=== PATIENT | female | born 1995 | race Two or more races ===

== ENCOUNTER 2024-07-09 08:42 | Emergency (ER) | payer MEDICAID, SELFPAY ==
[2024-07-09 08:54] VITALS: BP 119/86; PULSE 87; RESP 16; TEMP 37.1; O2SAT 97
--- NOTE | 2024-07-09 09:17 | EDNOTE_ITS ---
ED Skin Abcess FB-RME/HPI General Chief complaint: Skin/Abscess/Foreign Body Stated complaint: RASH ON BUE/BLE THIS AM; LAC L) PALM FROM YESTERDA Time Seen by Provider: 07/09/24 08:53 Source: patient Arrival date/time: 07/09/24 08:42 29-year-old female with no known medical history presents to the emergency room with a chief complaint of a generalized rash to her abdomen bilateral arms and lower extremities that began this morning. Patient also has a laceration to her left palm that occurred yesterday afternoon while opening up a can. Mode of arrival: ambulatory Limitations: no limitations Related Data Home Medications ?Medication ?Instructions ?Recorded ?Confirmed prenat.vits,aruna,[id number] 1 tab PO QDAY 08/24/20 08/24/20 Previous Rx's ?Medication ?Instructions ?Recorded docusate sodium 100 mg capsule 100 mg PO BID postpartu m 30 days 08/29/20 (Colace) #60 caps ibuprofen 600 mg tablet 600 mg PO QID fever or pain 30 08/29/20 days #60 tabs albuterol sulfate 90 mcg/actuation 1 inh inhalation QI D #6.7 grams 12/31/21 aerosol inhaler Allergies Allergy/AdvReac Type Severity Reaction Status Date / Time NKA* Allergy Uncoded 07/09/24 08:46 Review of Systems Review of Systems Systems Reviewed: All systems reviewed, normal except as documented Constitutional Constitutional: Reports system reviewed and no additional complaints, except as documented, Denies fatigue, Denies fever(s), Denies headache(s) and Denies weakness Eyes Eyes: Reports system reviewed and no additional complaints, except as documented, Denies blurry vision, Denies change in vision and Denies itchy eyes ENT Ears, Nose, Mouth, and Throat: Reports system reviewed and no additional complaints, except as documented, Denies otalgia, Denies headache(s), Denies lip swelling, Denies nasal congestion, Denies throat swelling, Denies tongue swelling and Denies vertigo Cardiovascular Cardiovascular: Reports system reviewed and no additional complaints, except as documented, Denies chest pain, Denies dyspnea and Denies dyspnea on exertion Respiratory Respiratory: Reports system reviewed and no additional complaints, except as documented, Denies chest congestion, Denies cough, Denies dyspnea, Denies dyspnea on exertion and Denies wheezing Gastrointestinal Gastrointestinal: Reports system reviewed and no additional complaints, except as documented, Denies abdominal pain, Denies cramping, Denies nausea and Denies vomiting Genitourinary Genitourinary: Reports system reviewed and no additional complaints, except as documented Musculoskeletal Musculoskeletal: Reports system reviewed and no additional complaints, except as documented and Denies back pain Integumentary/Breasts Skin/Breast: Reports system reviewed and no additional complaints, except as documented and Reports wounds Neurologic Neurologic: Reports system reviewed and no additional complaints, except as documented, Denies confusion, Denies headache(s), Denies lack of coordination, Denies vertigo and Denies weakness Psychiatric Psychiatric: Reports system reviewed and no additional complaints, except as documented, Denies anxiety, Denies confusion, Denies depression, Denies paranoia, Denies suicidal ideation and Denies tactile hallucinations Endocrine Endocrine: Reports system reviewed and no additional complaints, except as documented and Denies fatigue Hematologic/Lymphatic Hematologic/Lymphatic: Reports system reviewed and no additional complaints, except as documented and Denies lymphadenopathy Allergic/Immunologic Allergic/Immunologic: Reports system reviewed and no additional complaints, except as documented, Denies as per HPI, Denies GI upset with certain foods, Denies itchy eyes, Denies lip swelling, Denies seasonal rhinorrhea, Denies throat swelling, Denies tongue swelling, Reports urticaria and Denies wheezing Past Medical History Past Medical History NEUROLOGIC: Negative Neurological Disorders or Seizures CARDIAC: Negative Cardiac Disorders or Congestive Heart Failure RESPIRATORY: Positive Asthma; Negative Chronic Obstructive Pulmonary Disease (COPD) GASTROINTESTINAL: Negative Gastrointestinal Disorders or Colorectal Cancer GENITOURINARY: Negative Genitourinary Disorders, Renal Disease or Prostate Cancer REPRODUCTIVE: Negative Breast Cancer, Endometriosis, Pelvic Inflammatory Disease, Previous Pregnancies, Testicular Cancer or Uterine Prolapse MUSCULOSKELETAL: Negative Musculoskeletal Disorders, Bone Cancer or Carpal Tunnel Syndrome ENDOCRINE: Negative Endocrine Disorders, Diabetes Mellitus Type 1 or Diabetes Mellitus Type 2 HEMATOLOGIC: Negative Blood Disorders PSYCHO/SOCIAL: Negative Depression or Anxiety OTHER HISTORY: Positive Blood Transfusions (2012); Negative Autoimmune Disease, Blood Transfusion Reaction, Anesthesia Reactions, MRSA, VRSA, Vancomycin-Resistant Enterococci, Clostridium Difficile, Cancer, Breast Cancer, Cervical Cancer, Colorectal Cancer, Lung Cancer, Ovarian Cancer, Prostate Cancer or Testicular Cancer Family History FAMILY HISTORY: Negative Family Psychiatric Problems, Family Respiratory Disorders, Family Cardiac Disorders, Family Gastrointestinal Problems, Family Cancer, Family Surgery or Family Anesthesia Reaction Surgical History SURGICAL: Positive Oral Surgery; Negative Abdominal Surgery, Nephrectomy, Transurethral Resection, Joint Replacement, Amputation, Open Reduction Internal Fixation, Arthroscopy, Neurologic Surgery or Brain Shunt Social History SMOKING STATUS: Never smoker ED Exam General Limitations: Present no limitations General appearance: Present alert and in no apparent distress Head Head exam: Present atraumatic Eye Eye exam: Present normal appearance, PERRL and EOMI ENT ENT exam: Present normal exam, normal oropharynx and mucous membranes moist Neck Neck exam: Present normal inspection, full ROM and trachea midline Chest Chest inspection: Present normal inspection and symmetric chest wall rise Respiratory Respiratory exam: Present normal lung sounds bilaterally Cardiovascular Cardiovascular exam: Present regular rate, normal rhythm and normal heart sounds Abdominal Exam Abdominal exam: Present soft and normal bowel sounds Extremities Exam Extremities exam: Present normal inspection and full ROM Expanded Upper Extremity Exam Shoulder exam: Present normal inspection Arm exam: Present normal inspection Elbow exam: Present normal inspection Forearm/Wrist exam: Present normal inspection Hand exam: Present normal inspection Hand L/R front image: 2 1. laceration (2 cm laceration. It is superficial and occurred yesterday afternoon.) Vascular exam: Normal capillary refill Back Exam Back exam: Present normal inspection and full ROM Neurological Exam Neurological exam: Present alert, oriented X3 and CN II-XII intact Psychiatric Psychiatric exam: Present normal affect and normal mood Skin Skin exam: Present warm, dry, intact, normal color and rash Expanded Skin Exam Type of lesion: Present rash Distribution: Present generalized, abdomen, LUE, LLE, RUE and RLE Description: Present erythematous and other (Hives); Absent tenderness or swelling Course Quality Measures none Orders Category Date Time Status Dermabond Set Up NOW Care 07/09/24 09:13 Active Wound Care [Wound Care] X1 Care 07/09/24 09:13 Active Dexamethasone Inj [Decadron Inj] Med 07/09/24 09:13 Discontinued 10 mg PO X1 ONE DiphenhydrAMINE [Benadryl] Med 07/09/24 09:13 Discontinued 25 mg PO X1 ONE Famotidine [Pepcid] Med 07/09/24 09:13 Discontinued 20 mg PO X1 ONE TET,DIP/PERT AC (Adult)-Tdap [Boostrix Adult (Tdap) Med 07/09/24 09:57 Discontinued Vacc] 0.5 ml IMI .ONCE ONE Vital Signs Vital signs: Vital Signs Temperature 98.8 F 07/09/24 08:54 Pulse Rate 87 07/09/24 08:54 Respiratory Rate 16 07/09/24 08:54 Blood Pressure 119/86 H 07/09/24 08:54 Pulse Oximetry (%) 97 07/09/24 08:54 Oxygen Delivery Method Room Air 07/09/24 08:54 Skin / Abscess / Foreign Body MDM Narrative MDM Narrative:: 29-year-old female with no known medical history presents to the emergency room with a chief complaint of a generalized rash to her abdomen bilateral arms and lower extremities that began this morning. Patient also has a laceration to her left palm that occurred yesterday afternoon while opening up a can. Patient is hemodynamically stable and in no apparent distress. Physical examination shows a generalized rash of hives and erythema to the bilateral upper arms abdomen and groin area. Patient states his rash began this morning. Patient denies any shortness of breath any respiratory distress. Lung sounds are clear bilaterally there is no wheezing there is no lip swelling tongue swelling or any difficulty swallowing. Patient also has a 2 cm laceration to the palm of her left hand. Patient states she was opening up a can yesterday and cut herself. The laceration is very superficial and occurred yesterday afternoon. The laceration was closed and approximated with Steri- Strips and Dermabond. Area was cleaned and irrigated and soaked in normal saline and Betadine. A dressing was placed. During reevaluation after antihistamines patient's allergic reaction symptoms have significantly improved. Patient was discharged and educated to follow-up with primary care provider in the next 24 to 48 hours and return to the emergency room for any evidence of worsening signs or symptoms Patient data External records reviewed:: [facility] previous records Clinical information provided by:: patient Social determinants that could affect healthcare access:: none Patient has the following chronic illnesses:: No chronic illness How is presenting disease/condition affected by chronic disease/condition?: no chronic disease Evaluation data The following diagnostics were reviewed and interpreted by me:: lab results and radiology exam(s) Lab and/or radiology exams considered but not ordered:: Labs and radiology exams considered and ordered Interpretation Summary: N/A Medications / Prescriptions Medications or Prescriptions considered but not ordered:: Medication given Medication administrations:: Medication Administration History Discontinued Medications Dexamethasone Sodium Phosphate (Dexamethasone Sod Phos Inj 10 Mg/Ml Vial) 10 mg PO X1 ONE Stop: 07/09/24 09:14 Last Admin: 07/09/24 09:44 Dose: 10 mg Documented By: ELY Diphenhydramine HCl (Diphenhydramine Elix 25 Mg/10 Ml Udc) 25 mg PO X1 ONE Stop: 07/09/24 09:14 Last Admin: 07/09/24 09:44 Dose: 25 mg Documented By: ELY Diphtheria/Tetanus/Acell Pertussis (Diphth,Pertuss(Acell),Tet Vac 0.5 Ml Syr- Adult) 0.5 ml IMi .ONCE ONE Stop: 07/09/24 09:58 Last Admin: 07/09/24 10:04 Dose: 0.5 ml Documented By: ELY Famotidine (Famotidine 20 Mg Tablet) 20 mg PO X1 ONE Stop: 07/09/24 09:14 Last Admin: 07/09/24 09:44 Dose: 20 mg Documented By: ELY Medication given Consultations Consultation(s) initiated? (list below): No Diagnosis Skin/Abscess Differential Diagnosis: abscess of skin or subcutaneous tissue, allergic reaction to drug, cellulitis, contact dermatitis and other (Allergic reaction) Most likely diagnosis given after review of the tests above:: Contact dermatitis Admission Indicated Admission indicated?: not indicated Admission Request Was there a request for admission?: No Disposition Plan Disposition Plan: Discharge Discharge Attestation Discharge Attestation: The patient and all family members were given an opportunity to ask questions and understood the discharge instructions. Discharge instructions specifically effects, indications for sooner follow up or return to the emergency department, and the expected course of current diagnosis. Patient condition: Stable Discharge Plan Plan Patient Disposition: HOME (Self Care) Discharge Disposition comment: Stable Prescriptions/Referrals Prescriptions/Med Rec: No Action prenat.vits,aruna,[id number] Tablet 1 tab PO QDAY ibuprofen 600 mg tablet 600 mg PO QID MDD 4 30 Days Qty: 60 1RF docusate sodium [Colace] 100 mg capsule 100 mg PO BID MDD 2 30 Days Qty: 60 1RF albuterol sulfate 90 mcg/actuation HFA aerosol inhaler 1 inh inhalation QID Qty: 6.7 0RF Referrals: Darinel Chua MD [Primary Care Provider] - In 1 week Problem List Clinical Impression: Contact dermatitis, Laceration Patient/Caregiver Discharge Instructions Education Materials: Understanding Contact Dermatitis, ED Contact Dermatitis Additional Instructions: Please follow-up with your primary care provider in the next 24 to 48 hours. For any evidence of worsening signs or symptoms return to the emergency room immediately Print Language: Chinese Stand Alone Forms: [employer] Award Info., Work/School Release, Patient Portal Info Letter PA/THERAPY ADMINISTRATIVE ASSISTANT Supervising Physician PA/THERAPY ADMINISTRATIVE ASSISTANT Supervising Physician: Dr. Johansen
[2024-07-09] MEDS: DEXAMETHASONE SOD PHOS INJ 10 MG/ML VIAL PO (09:44)
[2024-07-09] MEDS: DiphenhydrAMINE ELIX 25 MG/10 ML UDC PO (09:44)
[2024-07-09] MEDS: FAMOTIDINE 20 MG TABLET PO (09:44)
[2024-07-09] MEDS: DIPHTH,PERTUSS(ACELL),TET VAC 0.5 ML SYR- ADULT IMi (10:04)
[2024-07-09 11:04] VITALS: BP 120/78; PULSE 87; RESP 16; TEMP 37.1; O2SAT 98
== END 2024-07-09 11:05 | disposition home or self-care (01) ==
PROVIDERS: Emergency Provider Family Medicine; PCP Family Medicine
DX: L25.9 Unspecified contact dermatitis, unspecified cause (principal); S61.412A Laceration without foreign body of left hand, initial encounter; W45.8XXA Other foreign body or object entering through skin, initial encounter
CPT/HCPCS: 12001; 90471; 90715; 99283; J1100; A9270

== ENCOUNTER 2024-10-30 01:54 | Emergency (ER) | payer MEDICAID, SELFPAY ==
[2024-10-30 01:54] VITALS: BMI 35.6
[2024-10-30 02:02] VITALS: BP 145/98; PULSE 83; RESP 18; TEMP 36.7; O2SAT 96
--- NOTE | 2024-10-30 02:56 | XR_ITS ---
Examination: CT brain head without contrast. 2-D sagittal coronal reconstructions Date and time of exam:October 30, 2024, 0316 hrs. Indications: Onset headaches today CTDI: vol (mGy):48.5 DLP: (mGycm):893 Technique: Multiple CT axial sections of the brain have been obtained, 5 mm slice thickness. Contrast has not been administered. 2-D sagittal, coronal reconstructions have been obtained Low dose protocols were performed. One or more of the following dose reduction techniques were used; automated exposure control, adjustment of the mA and/or KV according to patient size, use of iterative reconstruction technique. Findings: No significant ventricular enlargement. Intra-axial or extra-axial hemorrhage density is not seen. No mass effect or midline shift Basal cisterns are not remarkable. Fourth ventricle is midline. Cranial vault intact. Impression: Negative for acute hemorrhage, mass effect or midline shift
--- NOTE | 2024-10-30 03:23 | PD.EDRME ---
Rapid Medical Screening Exam RME Arrival date/time: 10/30/24 01:54 This is a case of 29-year-old female who came into the emergency room due to headache for 1 day no other symptoms noted no dizziness no nausea no vomiting persistence of the symptoms this patient decided to start consult here in the emergency room Chief Complaint: Headache Vital signs: Vital Signs Temperature 98.1 F 10/30/24 02:02 Pulse Rate 83 10/30/24 02:02 Respiratory Rate 18 10/30/24 02:02 Blood Pressure 145/98 H 10/30/24 02:02 Pulse Oximetry (%) 96 10/30/24 02:02 Oxygen Delivery Method Room Air 10/30/24 02:02
--- NOTE | 2024-10-30 03:33 | EDNOTE_ITS ---
ED Headache RME/HPI General Chief Complaint: Headache Stated Complaint: HEADACHE Arrival date/time: 10/30/24 01:54 RME / HPI RME / HPI Narrative: 10/30/24 01:54 This is a case of 29-year-old female who came into the emergency room due to headache for 1 day no other symptoms noted no dizziness no nausea no vomiting persistence of the symptoms this patient decided to start consult here in the emergency room DR. SALAS MAIN ED EVALUATION: 29 y/o female presents to ED c/o headache x 1 day. Admits to recent sress. Denies history of frequent hedaches. No other concerns or complaints expressed at this time. Related Data Home Medications ?Medication ?Instructions ?Recorded ?Confirmed prenat.vits,aruna,[id number] 1 tab PO QDAY 08/24/20 08/24/20 Previous Rx's ?Medication ?Instructions ?Recorded docusate sodium 100 mg capsule 100 mg PO BID postpartu m 30 days 08/29/20 (Colace) #60 caps ibuprofen 600 mg tablet 600 mg PO QID fever or pain 30 08/29/20 days #60 tabs albuterol sulfate 90 mcg/actuation 1 inh inhalation QI D #6.7 grams 12/31/21 aerosol inhaler Allergies Allergy/AdvReac Type Severity Reaction Status Date / Time NKA* Allergy Uncoded 07/09/24 08:46 Review of Systems Review of Systems Systems Reviewed: All systems reviewed, normal except as documented Past Medical History Past Medical History RESPIRATORY: Positive Asthma OTHER HISTORY: Positive Blood Transfusions (2012) Surgical History SURGICAL: Positive Oral Surgery ED Exam Narrative Physical exam: Generally patient is alert no obvious distress, eyes pupils equal round reactive to light, neck shows no bruits no nuchal rigidity, heart regular rate and rhythm, lungs clear to auscultation equal bilateral, abdomen soft bowel sounds present nondistended nontender, skin is warm pale and dry, neurologic exam no focal motor or sensory deficits and no ataxia. Course Quality Measures none Orders Category Date Time Status CT head/brain wo con Stat Exams 10/30/24 02:56 Taken HCG Qualitative,Urine Stat Lab 10/30/24 03:00 Completed Vital Signs Vital signs: Vital Signs Temperature 98.1 F 10/30/24 02:02 Pulse Rate 83 10/30/24 02:02 Respiratory Rate 18 10/30/24 02:02 Blood Pressure 145/98 H 10/30/24 02:02 Pulse Oximetry (%) 96 10/30/24 02:02 Oxygen Delivery Method Room Air 10/30/24 02:02 Headache MDM Narrative MDM Narrative:: Scribe Attestation: I, Ruthie Costa, am scribing for and in the presence of Dr. Salas. Provider Notation: Although this document has been carefully reviewed, there may still be some phonetic and other typographical errors. These errors are purely grammatical due to imperfections in the software program and should not be construed in any way to compromise the substance of the patient's medical care during this visit. Patient is without headache at the time of my evaluation. CAT scan of the brain was already protocoled prior to me seeing the patient. That was normal. Patient does not want pain medication here in the emergency room. She did take Tylenol and ibuprofen earlier today which may have helped with her pain currently. She is to continue Tylenol and ibuprofen as needed for pain at home. Follow-up with her doctor. Return to ER as needed or if condition worsens. Differential diagnosis: Primary cephalgia, secondary cephalgia Patient data External records reviewed:: [facility] previous records (Reviewed prior ED records from 07/09/24. Patient was seen for Contact dermatitis.) Clinical information provided by:: patient Social determinants that could affect healthcare access:: none Patient has the following chronic illnesses:: Asthma How is presenting disease/condition affected by chronic disease/condition?: uneffected by Evaluation data The following diagnostics were reviewed and interpreted by me:: lab results and radiology exam(s) Lab and/or radiology exams considered but not ordered:: None Interpretation Summary: RADIOLOGY Head/Brain CT: Findings: There is no intracranial hemorrhage, extra-axial collection, mass, mass-effect or midline shift. There is good garza-white differentiation. There is no CT evidence of acute large vascular territorial infarct. Ventricles are not enlarged or effaced. Visualized paranasal sinuses and tympanomastoid cavities are clear. The bony calvarium is intact. Impression: No intracranial hemorrhage, mass-effect or midline shift. No CT evidence of acute large vascular territorial infarct. Medications / Prescriptions Medications or Prescriptions considered but not ordered:: None Medication administrations:: See above if any. Consultations Consultation(s) initiated? (list below): No Diagnosis Differential diagnosis headache: migraine, tension headache, headache and sinusitis Most likely diagnosis given after review of the tests above:: None Admission Indicated Admission indicated?: not indicated Explain why admission is indicated or not indicated:: Patient does not meet admission criteria. Admission Request Was there a request for admission?: No Disposition Plan Disposition Plan: Discharge Discharge Attestation Discharge Attestation: The patient and all family members were given an opportunity to ask questions and understood the discharge instructions. Discharge instructions specifically effects, indications for sooner follow up or return to the emergency department, and the expected course of current diagnosis. Patient condition: Stable Discharge Plan Plan Patient Disposition: HOME (Self Care) Prescriptions/Referrals Prescriptions/Med Rec: No Action prenat.vits,aruna,[id number] Tablet 1 tab PO QDAY ibuprofen 600 mg tablet 600 mg PO QID MDD 4 30 Days Qty: 60 1RF docusate sodium [Colace] 100 mg capsule 100 mg PO BID MDD 2 30 Days Qty: 60 1RF albuterol sulfate 90 mcg/actuation HFA aerosol inhaler 1 inh inhalation QID Qty: 6.7 0RF Referrals: Darinel Chua MD [Primary Care Provider] - In 1 week Problem List Clinical Impression: Headache Patient/Caregiver Discharge Instructions Education Materials: Self-Care for Headaches Additional Instructions: You may take Tylenol and/or ibuprofen as needed for pain. Follow-up with your doctor as needed. Print Language: Irish Stand Alone Forms: [employer] Award Info., Patient Portal Info Letter
--- NOTE | 2024-10-30 03:34 | PRELIM_ITS ---
CT scan of the head without intravenous contrast (axial sections with sagittal and coronal reformats). October 30, 2024 0316 hours Clinical History: headache Comparison: None Findings: There is no intracranial hemorrhage, extra-axial collection, mass, mass-effect or midline shift. There is good garza-white differentiation. There is no CT evidence of acute large vascular territorial infarct. Ventricles are not enlarged or effaced. Visualized paranasal sinuses and tympanomastoid cavities are clear. The bony calvarium is intact. Impression: No intracranial hemorrhage, mass-effect or midline shift. No CT evidence of acute large vascular territorial infarct. Report Electronically Signed By: Josh Kennedy 10/30/2024 3:33:25 AM [EST]
[2024-10-30 03:35] LABS: HCG Qualitative,Urine Negative
[2024-10-30 03:47] VITALS: BP 130/93; PULSE 86; RESP 19; O2SAT 98
== END 2024-10-30 04:00 | disposition home or self-care (01) ==
PROVIDERS: Nurse Practitioner Family; Emergency Provider Emergency Medicine; PCP Family Medicine
DX: R51.9 Headache, unspecified (principal)
CPT/HCPCS: 70450; 81025; 99283

== ENCOUNTER 2024-11-18 05:54 | Emergency (ER) | payer MEDICAID, SELFPAY ==
[2024-11-18 05:56] VITALS: BP 129/85; PULSE 95; RESP 18; TEMP 36.8; O2SAT 96; BMI 35.4
--- NOTE | 2024-11-18 06:35 | EDNOTE_ITS ---
ED Dental RME/HPI General Chief complaint: Dental/Oral/Throat Stated complaint: SORE THROAT Time Seen by Provider: 11/18/24 06:16 Arrival date/time: 11/18/24 05:54 29-year-old female presents to the emergency department for complaints of sore throat patient reports symptoms onset 2 days ago reports nothing symptoms better or worse quality throbbing in nature no radiation of symptoms severity moderate with no treatment prior to arrival Limitations: no limitations Related Data Home Medications ?Medication ?Instructions ?Recorded ?Confirmed prenat.vits,aruna,[id number] 1 tab PO QDAY 08/24/20 08/24/20 Previous Rx's ?Medication ?Instructions ?Recorded docusate sodium 100 mg capsule 100 mg PO BID postpartu m 30 days 08/29/20 (Colace) #60 caps ibuprofen 600 mg tablet 600 mg PO QID fever or pain 30 08/29/20 days #60 tabs albuterol sulfate 90 mcg/actuation 1 inh inhalation QI D #6.7 grams 12/31/21 aerosol inhaler amoxicillin 875 mg-potassium 1 tab PO BID 7 days #14 t abs 11/18/24 clavulanate 125 mg tablet prednisone 10 mg tablet 30 mg (3 x 10 mg) PO BID 3 d ays 11/18/24 #18 tabs Allergies Allergy/AdvReac Type Severity Reaction Status Date / Time No Known Allergies Allergy Verified 11/18/24 05:59 Review of Systems Review of Systems Systems Reviewed: All systems reviewed, normal except as documented Constitutional Constitutional: Reports system reviewed and no additional complaints, except as documented, Denies fever(s) and Denies headache(s) Eyes Eyes: Reports system reviewed and no additional complaints, except as documented and Denies blurry vision ENT Ears, Nose, Mouth, and Throat: Reports system reviewed and no additional complaints, except as documented, Denies headache(s), Denies nasal congestion, Denies nasal discharge and Reports sore throat Cardiovascular Cardiovascular: Reports system reviewed and no additional complaints, except as documented, Denies chest pain and Denies dyspnea Respiratory Respiratory: Reports system reviewed and no additional complaints, except as documented, Denies chest congestion, Denies cough and Denies dyspnea Gastrointestinal Gastrointestinal: Reports system reviewed and no additional complaints, except as documented and Denies abdominal pain Integumentary/Breasts Skin/Breast: Reports system reviewed and no additional complaints, except as documented and Denies rash Neurologic Neurologic: Reports system reviewed and no additional complaints, except as documented, Reports as per HPI and Denies headache(s) Past Medical History Past Medical History NEUROLOGIC: Negative Neurological Disorders or Seizures CARDIAC: Negative Cardiac Disorders or Congestive Heart Failure RESPIRATORY: Positive Asthma; Negative Chronic Obstructive Pulmonary Disease (COPD) GASTROINTESTINAL: Negative Gastrointestinal Disorders or Colorectal Cancer GENITOURINARY: Negative Genitourinary Disorders, Renal Disease or Prostate Cancer REPRODUCTIVE: Negative Breast Cancer, Endometriosis, Pelvic Inflammatory Disease, Previous Pregnancies, Testicular Cancer or Uterine Prolapse MUSCULOSKELETAL: Negative Musculoskeletal Disorders, Bone Cancer or Carpal Tunnel Syndrome ENDOCRINE: Negative Endocrine Disorders, Diabetes Mellitus Type 1 or Diabetes Mellitus Type 2 HEMATOLOGIC: Negative Blood Disorders PSYCHO/SOCIAL: Negative Depression or Anxiety OTHER HISTORY: Positive Blood Transfusions (2012); Negative Autoimmune Disease, Blood Transfusion Reaction, Anesthesia Reactions, MRSA, VRSA, Vancomycin-Resistant Enterococci, Clostridium Difficile, Cancer, Breast Cancer, Cervical Cancer, Colorectal Cancer, Lung Cancer, Ovarian Cancer, Prostate Cancer or Testicular Cancer Family History FAMILY HISTORY: Negative Family Psychiatric Problems, Family Respiratory Disorders, Family Cardiac Disorders, Family Gastrointestinal Problems, Family Cancer, Family Surgery or Family Anesthesia Reaction Surgical History SURGICAL: Positive Oral Surgery; Negative Abdominal Surgery, Nephrectomy, Transurethral Resection, Joint Replacement, Amputation, Open Reduction Internal Fixation, Arthroscopy, Neurologic Surgery or Brain Shunt Social History SMOKING STATUS: Never smoker ED Exam General Limitations: Present no limitations General appearance: Present alert and in no apparent distress Head Head exam: Present atraumatic, normocephalic and normal inspection Eye Eye exam: Present normal appearance, PERRL and EOMI; Absent conjunctival injection ENT ENT exam: Present mucous membranes moist Expanded ENT Exam Throat exam: Present tonsillar erythema and tonsillomegaly Neck Neck exam: Present normal inspection, full ROM and trachea midline Chest Chest inspection: Present normal inspection and symmetric chest wall rise Respiratory Respiratory exam: Present normal lung sounds bilaterally; Absent respiratory distress Cardiovascular Cardiovascular exam: Present regular rate, normal rhythm and normal heart sounds Abdominal Exam Abdominal exam: Present soft and normal bowel sounds Extremities Exam Extremities exam: Present normal inspection and full ROM Back Exam Back exam: Present normal inspection and full ROM Neurological Exam Neurological exam: Present alert, oriented X3, CN II-XII intact, normal gait and reflexes normal; Absent motor sensory deficit Psychiatric Psychiatric exam: Present normal affect and normal mood Skin Skin exam: Present warm, dry, intact and normal color Course Quality Measures none Vital Signs Vital signs: Vital Signs Temperature 98.2 F 11/18/24 05:56 Pulse Rate 95 11/18/24 05:56 Respiratory Rate 18 11/18/24 05:56 Blood Pressure 129/85 H 11/18/24 05:56 Pulse Oximetry (%) 96 11/18/24 05:56 Oxygen Delivery Method Room Air 11/18/24 05:56 O2 saturation 96% on room air within normal limits Dental / Oral MDM Narrative MDM Narrative:: 29-year-old female presents to the emergency department for complaints of sore throat patient reports symptoms onset 2 days ago reports nothing symptoms better or worse quality throbbing in nature no radiation of symptoms severity moderate with no treatment prior to arrival Patient reports no chance of On exam patient well-appearing patient is not acutely toxic no acute distress patient no trismus hoarseness of voice Exam patient does have tonsillar erythema and tonsillar swelling Patient was treated symptomatically suspect patient most likely has streptococcal pharyngitis Patient treated with Augmentin and prednisone Patient discharged home in no distress to follow-up with primary care doctor in the next 24 to 48 hours and for any worsening symptoms to return to the ER immediately Patient data External records reviewed:: [facility] previous records Clinical information provided by:: patient Social determinants that could affect healthcare access:: none Patient has the following chronic illnesses:: None How is presenting disease/condition affected by chronic disease/condition?: no chronic disease Evaluation data The following diagnostics were reviewed and interpreted by me:: other (specify) Lab and/or radiology exams considered but not ordered:: Considered not ordered Interpretation Summary: N/A Medications / Prescriptions Medications or Prescriptions considered but not ordered:: Given Medication administrations:: Given Consultations Consultation(s) initiated? (list below): No Diagnosis Dental Differential Diagnosis: gingival abscess, dental caries, toothache, dental abscess and fracture of tooth Most likely diagnosis given after review of the tests above:: Pharyngitis Admission Indicated Admission indicated?: not indicated Admission Request Was there a request for admission?: No Disposition Plan Disposition Plan: Discharge Discharge Attestation Discharge Attestation: The patient and all family members were given an opportunity to ask questions and understood the discharge instructions. Discharge instructions specifically effects, indications for sooner follow up or return to the emergency department, and the expected course of current diagnosis. Patient condition: Stable Discharge Plan Plan Patient Disposition: HOME (Self Care) Discharge Disposition comment: Stable Prescriptions/Referrals Prescriptions/Med Rec: New prednisone 10 mg tablet 30 mg PO BID 3 Days Qty: 18 0RF amoxicillin-pot clavulanate 875-125 mg tablet 1 tab PO BID 7 Days Qty: 14 0RF No Action prenat.vits,aruna,[id number]-rela-[id number] Tablet 1 tab PO QDAY ibuprofen 600 mg tablet 600 mg PO QID MDD 4 30 Days Qty: 60 1RF docusate sodium [Colace] 100 mg capsule 100 mg PO BID MDD 2 30 Days Qty: 60 1RF albuterol sulfate 90 mcg/actuation HFA aerosol inhaler 1 inh inhalation QID Qty: 6.7 0RF Problem List Clinical Impression: Pharyngitis Patient/Caregiver Discharge Instructions Education Materials: Self-Care for Sore Throats Additional Instructions: Please follow up with your primary care doctor in the next 24-48hrs for any worsening symptoms return here immediately Print Language: Martiniquais Stand Alone Forms: [employer] Award Info., Patient Portal Info Letter PA/FIBERGLASS LUGGAGE MOLDER Supervising Physician PA/FIBERGLASS LUGGAGE MOLDER Supervising Physician: Dr. ayala
[2024-11-18 06:37] VITALS: RESP 12
== END 2024-11-18 06:40 | disposition home or self-care (01) ==
PROVIDERS: Emergency Provider Family Medicine; PCP Family Medicine
DX: J02.9 Acute pharyngitis, unspecified (principal)
CPT/HCPCS: 99281

== ENCOUNTER 2024-12-19 18:01 | Emergency (ER) | payer MEDICAID, SELFPAY ==
[2024-12-19 18:02] VITALS: BMI 34.9
[2024-12-19 18:34] VITALS: BP 111/68; PULSE 110; RESP 18; TEMP 38.1; O2SAT 98
--- NOTE | 2024-12-19 18:43 | XR_ITS ---
Examination: Abdomen sonogram, Limited Date and time of exam: December 19, 2024, 1940 hours INDICATIONS: Abdominal pain and fever epigastric pain today, early by history Technique: Real-time garza scale transabdominal sonographic images of the upper abdomen obtained. Findings: Normal gallbladder Normal common bile duct 0.3 cm Pancreatic head 3.6 cm Liver 15.9 cm fatty infiltration no focal liver lesions Normal hepatopetal portal venous flow Patent IVC IMPRESSION: Normal gallbladder Normal common bile duct
--- NOTE | 2024-12-19 18:43 | XR_ITS ---
Examination: OB Transvaginal ultrasound of the pelvis, complete Technique: Transvaginal sonographic images pelvis performed using garza scale imaging Exam date and time: December 19, 2024, 1949 hours INDICATIONS: Pelvic pain and fever beginning 6 days ago FINDINGS: Uterus 9.8 cm pole 0.7 cm corresponds to 6 weeks 3 days gestational age Cardiac motion 140 bpm Subchorionic hemorrhage 30 x 28 mm Right ovary 2.9 cm arterial flow Small follicles Left ovary 5.0 cm arterial flow multiple cysts, the largest 29 x 30 mm IMPRESSION: Viable intrauterine gestation 6 weeks 3 days, recommend short-term follow-up pelvic sonography given the subchorionic hemorrhage
--- NOTE | 2024-12-19 18:45 | EDRME_ITS ---
Rapid Medical Screening Exam [facility] Arrival date/time: 12/19/24 18:01 29F with history of DM presents to ED with 2 days of N/V, ab pain/cramping, and some non-bloody diarrhea. Patient denies URI symptoms, dysuria, and vaginal bleeding. Patient is about 6 weeks (). Chief Complaint: Abdominal Pain Vital signs: Vital Signs Temperature 100.5 F H 12/19/24 18:34 Pulse Rate 110 H 12/19/24 18:34 Respiratory Rate 18 12/19/24 18:34 Blood Pressure 111/68 12/19/24 18:34 Pulse Oximetry (%) 98 12/19/24 18:34 Oxygen Delivery Method Room Air 12/19/24 18:34
[2024-12-19 19:15] VITALS: TEMP 38.1
[2024-12-19] MEDS: ACETAMINOPHEN 500 MG TABLET 1000 MG PO (19:15)
[2024-12-19 19:27] LABS: Collection Type, Urine Clean Catch
[2024-12-19 19:28] LABS: Lactate (Lactic Acid) 1.2 mMol/L (0.4-2.0)
[2024-12-19 19:29] LABS: Influenza A Ag Negative; Influenza B Ag Negative
[2024-12-19 19:42] LABS: Amphetamine/Methamp Scrn,U Negative (Negative); Barbiturate Screen,Urine Negative (Negative); Benzodiazepines Screen,Urine Negative (Negative); Benzoylecgonine Screen, Ur Negative (Negative); Fentanyl Screen,Urine Negative (Negative); Opiate Screen,Urine Negative (Negative); THC Screen,Urine Negative (Negative)
[2024-12-19 19:44] LABS: Basophils # (Auto) 0.0 Thou/mm3 (0.0-0.2); Basophils % (Auto) 0 % (0-2.5); Eosinophils # (Auto) 0.3 Thou/mm3 (0.0-0.5); Eosinophils % (Auto) 2 % (0-10); Hematocrit 40.5 % (36.0-46.0); Hemoglobin 13.8 g/dL (12.0-16.0); Immature Granulocytes Auto 0.07 Thou/mm3 (0.00-0.00); Lymphocytes # (Auto) 1.8 Thou/mm3 (1.0-4.8); Lymphocytes % (Auto) 15 % (10-50); Mean Corpuscular HGB Conc 34.1 g/dl (31.0-37.0); Mean Corpuscular Hemoglobin 28.3 pg (25.0-35.0); Mean Corpuscular Volume 83 fL (80-100); Monocytes # (Auto) 0.6 Thou/mm3 (0.0-0.8); Monocytes % (Auto) 5 % (0-12); Neutrophils # (Auto) 9.2 Thou/mm3 (1.8-7.7); Neutrophils % (Auto) 77 % (37-80); Nucleated Red Blood Cell # 0.00 Thou/mm3 (0.00-0.00); Nucleated Red Blood Cell % 0 /100 WBC (0); Platelet Count 305 Thou/mm3 (140-440); RDW Standard Deviation 40.7 fL (36.4-46.3); Red Blood Count 4.88 Miln/mm3 (4.00-5.20); White Blood Count 11.9 Thou/mm3 (3.6-11.0)
[2024-12-19 19:57] LABS: Amorphous Crystals,Urine Present (Absent); Bacteria,Urine Rare; Bilirubin,Urine Negative (Negative); Blood,Urine Negative (Negative); Clarity,Urine Turbid (Clear/Hazy); Color,Urine Yellow (Lt Yel-Yel); Culture Indicated,Urine Not Indicated; Glucose, Urine Negative (Negative); Ketones,Urine Negative (Negative); Leukocyte Esterase,Urine Negative (Negative); Nitrite,Urine Negative (Negative); PH,Urine 6.0 (5.0-7.0); Protein,Urine Trace (Neg - Trace); RBC,Urine 6 /hpf (0-3); Specific Gravity,Urine 1.036 (1.001-1.035); Squamous Epithelial Cell,Urine 18 /hpf (0-5); Urobilinogen,Urine 3.0 mg/dL (0.0-1.0); WBC,Urine 2 /hpf (0-5)
[2024-12-19 19:59] LABS: Alanine Aminotransferase 102 U/L (10-49); Albumin, Serum 5.0 gm/dL (3.5-5.0); Albumin/Globulin Ratio 2.1 (1.2-2.2); Alkaline Phosphatase 78 U/L (46-116); Anion Gap 12 (7-16); Aspartate Amino Transferase 81 U/L (0-34); BUN/Creatinine Ratio 15 Ratio (12-20); Bilirubin,Total 0.6 mg/dL (0.3-1.2); Blood Urea Nitrogen 9 mg/dL (9-23); Calcium 9.3 mg/dL (8.3-10.6); Calcium (Corrected) 9.3 mg/dL (8.5-10.1); Carbon Dioxide 21.0 mMol/L (20.0-31.0); Chloride 104 mMol/L (98-107); Creatinine (Component) 0.6 mg/dL (0.6-1.3); Estimated Creatinine Clearance 156.5 mL/min (>60); Globulin 2.4 gm/dL (2.3-3.5); Glucose 122 mg/dL (74-106); Lipase 26 U/L (12-53); Osmolality,Calculated 273 (275-295); Potassium 3.8 mMol/L (3.4-5.1); Procalcitonin 0.12 ng/ml (0.0-0.49); Sodium 137 mMol/L (136-145); Total Protein 7.4 gm/dL (5.7-8.2); eGFR > 60 See Note
--- NOTE | 2024-12-19 20:14 | PD.EDABDPN ---
ED Abdominal Pain RME/HPI General Chief Complaint: Abdominal Pain Stated complaint: ABD PAIN, CHILLS, AND BODYACHES Time seen by provider: 12/19/24 20:14 Arrival date/time: 12/19/24 18:01 Source: patient Limitations: no limitations RME / HPI RME / HPI narrative: 12/19/24 18:01 29F with history of DM presents to ED with 2 days of N/V, ab pain/cramping, and some non-bloody diarrhea. Patient denies URI symptoms, dysuria, and vaginal bleeding. Patient is about [address] Morrissey evaluation Patient is a 29-year-old female with medical history notable for diabetes, recent emergency department times for nausea and vomiting abdominal pain cramping and diarrhea. Denies any vaginal bleeding. Patient is G5, P3 at approximately 6 weeks gestation. Related Data Home Medications ?Medication ?Instructions ?Recorded ?Confirmed prenat.vits,aruna,[id number] 1 tab PO QDAY 08/24/20 08/24/20 Previous Rx's ?Medication ?Instructions ?Recorded docusate sodium 100 mg capsule 100 mg PO BID 30 days 08/29/20 (Colace) #60 caps ibuprofen 600 mg tablet 600 mg PO QID fever or pain 30 08/29/20 days #60 tabs albuterol sulfate 90 mcg/actuation 1 inh inhalation QID #6.7 grams 12/31/21 aerosol inhaler Allergies Allergy/AdvReac Type Severity Reaction Status Date / Time No Known Allergies Allergy Verified 12/19/24 18:04 ED Exam General Limitations: Present no limitations Head Head exam: Present atraumatic Eye Eye exam: Present normal appearance and PERRL ENT ENT exam: Present normal exam Neck Neck exam: Present normal inspection Chest Chest inspection: Present normal inspection and symmetric chest wall rise Respiratory Respiratory exam: Absent respiratory distress Cardiovascular Cardiovascular exam: Present tachycardia Abdominal Exam Abdominal exam: Present soft; Absent distention, tenderness, guarding or rebound Neurological Exam Neurological exam: Present alert and other Psychiatric Psychiatric exam: Present normal affect Skin Skin exam: Present warm, dry, intact and normal color Course Orders Category Date Time Status Bedside COVID-19 Antigen Test NOW Care 12/19/24 18:43 Active Insert IV NOW Care 12/19/24 18:43 Active US OB transvaginal Stat Exams 12/19/24 18:43 Completed US gall bladder Stat Exams 12/19/24 18:43 Completed Beta HCG,Quantitative Stat Lab 12/19/24 19:20 Completed Blood Culture (Lab) Stat Lab 12/19/24 19:20 Received CBC Stat Lab 12/19/24 19:20 Completed CMP [Comprehensive Metabolic Panel] Stat Lab 12/19/24 19:20 Completed Drug Screen,Urine Stat Lab 12/19/24 19:17 Completed Influenza A & B Rapid Panel Stat Lab 12/19/24 18:50 Completed Lactate (Lactic Acid) Stat Lab 12/19/24 19:20 Completed Lipase Stat Lab 12/19/24 19:20 Completed Procalcitonin Stat Lab 12/19/24 19:20 Completed Urinalysis, C/S if Indicated Stat Lab 12/19/24 19:17 Completed Acetaminophen Tab [Tylenol ES Tab] Med 12/19/24 18:43 Discontinued 1,000 mg PO X1 ONE cefTRIAXone/D5w 1gm IV premix [Rocephin/D5w 1gm IV Med 12/19/24 18:44 Discontinued premix] 1 gm in 50 ml IV X1 Vital Signs Vital signs: Vital Signs Temperature 100.5 F H 12/19/24 18:34 Pulse Rate 110 H 12/19/24 18:34 Respiratory Rate 18 12/19/24 18:34 Blood Pressure 111/68 12/19/24 18:34 Pulse Oximetry (%) 98 12/19/24 18:34 Oxygen Delivery Method Room Air 12/19/24 18:34 Abdominal Pain [facility] Patient data External records reviewed:: [facility] previous records Clinical information provided by:: patient Patient has the following chronic illnesses:: See MDM How is presenting disease/condition affected by chronic disease/condition?: exacerbated by Evaluation data The following diagnostics were reviewed and interpreted by me:: lab results and radiology exam(s) Lab and/or radiology exams considered but not ordered:: None Interpretation Summary: See [facility] Medications / Prescriptions Medications or Prescriptions considered but not ordered:: None Medication administrations:: Medication Administration History Discontinued Medications Acetaminophen (Acetaminophen 500 Mg Tablet) 1,000 mg PO X1 ONE Stop: 12/19/24 18:44 Last Admin: 12/19/24 19:15 Dose: 1,000 mg Documented By: OA Ceftriaxone Sodium/Dextrose (Rocephin/D5w 1gm Iv Premix) 1 gm in 50 mls @ 100 mls/hr IV X1 ONE Stop: 12/19/24 19:13 Last Infusion: 12/19/24 21:19 Dose: Infused Documented By: Admin: 12/19/24 20:49 Dose: 100 mls/hr Documented By: FILI See above Discharge Plan Prescriptions/Referrals Prescriptions/Med Rec: No Action prenat.vits,aruna,[id number]-axcu-dtron Tablet 1 tab PO QDAY ibuprofen 600 mg tablet 600 mg PO QID MDD 4 30 Days Qty: 60 1RF docusate sodium [Colace] 100 mg capsule 100 mg PO BID MDD 2 30 Days Qty: 60 1RF albuterol sulfate 90 mcg/actuation HFA aerosol inhaler 1 inh inhalation QID Qty: 6.7 0RF Referrals: Darinel Chua MD [Primary Care Provider, Family Practice] - In 1 week Patient/Caregiver Discharge Instructions Print Language: Maltese
[2024-12-19 20:17] LABS: Beta HCG,Quantitative 7559 mIU/mL (<5.0)
[2024-12-19] MEDS: cefTRIAXone/D5w 1gm IV premix 1 GM/50 ML BAG IV (20:49)
[2024-12-19 20:50] VITALS: TEMP 37.4
[2024-12-19 23:13] VITALS: BP 133/80; PULSE 90; RESP 22; TEMP 37.1; O2SAT 96
--- NOTE | 2024-12-19 23:21 | PD.EDABDPN ---
ED Abdominal Pain RME/HPI General Chief Complaint: Abdominal Pain Stated complaint: ABD PAIN, CHILLS, AND BODYACHES Time seen by provider: 12/19/24 20:14 Arrival date/time: 12/19/24 18:01 RME / HPI RME / HPI narrative: 12/19/24 18:01 29F with history of DM presents to ED with 2 days of N/V, ab pain/cramping, and some non-bloody diarrhea. Patient denies URI symptoms, dysuria, and vaginal bleeding. Patient is about [address] Arndt?s Main ED Evaluation: 29yo female who is ~6 weeks gestation presents to the ED for a chief complaint of epigastric pain x today. No radiation or migration. Patient denies any nausea, vomiting, fever, chills, vaginal bleeding, or any other associated symptoms. NKA. Related Data Home Medications ?Medication ?Instructions ?Recorded ?Confirmed prenat.vits,aruna,[id number] 1 tab PO QDAY 08/24/20 08/24/20 Previous Rx's ?Medication ?Instructions ?Recorded docusate sodium 100 mg capsule 100 mg PO BID 30 days 08/29/20 (Colace) #60 caps ibuprofen 600 mg tablet 600 mg PO QID fever or pain 30 08/29/20 days #60 tabs albuterol sulfate 90 mcg/actuation 1 inh inhalation QID #6.7 grams 12/31/21 aerosol inhaler Allergies Allergy/AdvReac Type Severity Reaction Status Date / Time No Known Allergies Allergy Verified 12/19/24 18:04 Review of Systems Review of Systems Systems Reviewed: All systems reviewed, normal except as documented Past Medical History Past Medical History NEUROLOGIC: Negative Neurological Disorders or Seizures CARDIAC: Negative Cardiac Disorders or Congestive Heart Failure RESPIRATORY: Positive Asthma; Negative Chronic Obstructive Pulmonary Disease (COPD) GASTROINTESTINAL: Negative Gastrointestinal Disorders or Colorectal Cancer GENITOURINARY: Negative Genitourinary Disorders, Renal Disease or Prostate Cancer REPRODUCTIVE: Negative Breast Cancer, Endometriosis, Pelvic Inflammatory Disease, Previous Pregnancies, Testicular Cancer or Uterine Prolapse MUSCULOSKELETAL: Negative Musculoskeletal Disorders, Bone Cancer or Carpal Tunnel Syndrome ENDOCRINE: Negative Endocrine Disorders, Diabetes Mellitus Type 1 or Diabetes Mellitus Type 2 HEMATOLOGIC: Negative Blood Disorders PSYCHO/SOCIAL: Negative Depression or Anxiety OTHER HISTORY: Positive Blood Transfusions (2012); Negative Autoimmune Disease, Blood Transfusion Reaction, Anesthesia Reactions, MRSA, VRSA, Vancomycin-Resistant Enterococci, Clostridium Difficile, Cancer, Breast Cancer, Cervical Cancer, Colorectal Cancer, Lung Cancer, Ovarian Cancer, Prostate Cancer or Testicular Cancer Family History FAMILY HISTORY: Negative Family Psychiatric Problems, Family Respiratory Disorders, Family Cardiac Disorders, Family Gastrointestinal Problems, Family Cancer, Family Surgery or Family Anesthesia Reaction Surgical History SURGICAL: Positive Oral Surgery; Negative Abdominal Surgery, Nephrectomy, Transurethral Resection, Joint Replacement, Amputation, Open Reduction Internal Fixation, Arthroscopy, Neurologic Surgery or Brain Shunt Social History SMOKING STATUS: Never smoker ED Exam Narrative Physical exam: Generally patient is alert and in no obvious distress, heart regular rate and rhythm, lungs clear to auscultation equal bilaterally, abdomen is obese soft bowel sounds present nondistended nontender, skin is warm pale and dry without rash, extremities show no edema, neurologic exam shows Cyndie Coma Scale 15 Course Quality Measures none Orders Category Date Time Status Bedside COVID-19 Antigen Test NOW Care 12/19/24 18:43 Active Insert IV NOW Care 12/19/24 18:43 Active US OB transvaginal Stat Exams 12/19/24 18:43 Completed US gall bladder Stat Exams 12/19/24 18:43 Completed Beta HCG,Quantitative Stat Lab 12/19/24 19:20 Completed Blood Culture (Lab) Stat Lab 12/19/24 19:20 Received CBC Stat Lab 12/19/24 19:20 Completed CMP [Comprehensive Metabolic Panel] Stat Lab 12/19/24 19:20 Completed Drug Screen,Urine Stat Lab 12/19/24 19:17 Completed Influenza A & B Rapid Panel Stat Lab 12/19/24 18:50 Completed Lactate (Lactic Acid) Stat Lab 12/19/24 19:20 Completed Lipase Stat Lab 12/19/24 19:20 Completed Procalcitonin Stat Lab 12/19/24 19:20 Completed Urinalysis, C/S if Indicated Stat Lab 12/19/24 19:17 Completed Acetaminophen Tab [Tylenol ES Tab] Med 12/19/24 18:43 Discontinued 1,000 mg PO X1 ONE cefTRIAXone/D5w 1gm IV premix [Rocephin/D5w 1gm IV Med 12/19/24 18:44 Discontinued premix] 1 gm in 50 ml IV X1 Vital Signs Vital signs: Vital Signs Temperature 100.5 F H 12/19/24 18:34 Pulse Rate 110 H 10/21/25 18:34 Respiratory Rate 18 12/19/24 18:34 Blood Pressure 111/68 12/19/24 18:34 Pulse Oximetry (%) 98 12/19/24 18:34 Oxygen Delivery Method Room Air 12/19/24 18:34 Abdominal Pain MDM MDM Narrative MDM Narrative:: Scribe Attestation: 12/19/24 - Amanda Romano am scribing for and in the presence of Dr. Arndt. Patient was here almost 6 hours prior to my evaluation with protocol labs. There is no urine infection. OB ultrasound showed a viable 6-week and 3-day fetus with a small subchorionic hemorrhage. Patient has not been having vaginal bleeding. There is no leukocytosis. Lactic acid level is not elevated. Urine is not infected. Gallbladder ultrasound was unremarkable. Patient during my evaluation is not febrile or tachycardic. She may take Tylenol for fever and/or pain. Follow-up with her [employer] physician. She has 4 para 3. Return to ER as needed or if condition worsens. Prior to my evaluation the patient did receive Tylenol for temperature 100.5 degrees and Rocephin 1 g IV for the possibility of the patient was septic. Patient data External records reviewed:: [facility] previous records (Per chart review, patient was seen here on 11/18/24 for pharyngitis.) Clinical information provided by:: patient Social determinants that could affect healthcare access:: none Patient has the following chronic illnesses:: asthma How is presenting disease/condition affected by chronic disease/condition?: uneffected by Evaluation data The following diagnostics were reviewed and interpreted by me:: lab results and radiology exam(s) Lab and/or radiology exams considered but not ordered:: none Interpretation Summary: [facility] Signed Patient: KRISTIN MICHEL Record#: [id number] Birthdate: 1995 Age/Sex: 29 / F Location: [facility] Attending Dr: Ordering Physician: Aki Reynolds PA-C Date of Service: 12/19/24 Procedure(s): US OB transvaginal Accession Number(s): [id number] cc: Martell Dobbins MD; Reynolds,Aki PA-C~ Examination: OB Transvaginal ultrasound of the pelvis, complete Technique: Transvaginal sonographic images pelvis performed using garza scale imaging Exam date and time: December 19, 2024, 1949 hours INDICATIONS: Pelvic pain and fever beginning 6 days ago FINDINGS: Uterus 9.8 cm pole 0.7 cm corresponds to 6 weeks 3 days gestational age Cardiac motion 140 bpm Subchorionic hemorrhage 30 x 28 mm Right ovary 2.9 cm arterial flow Small follicles Left ovary 5.0 cm arterial flow multiple cysts, the largest 29 x 30 mm IMPRESSION: Viable intrauterine gestation 6 weeks 3 days, recommend short-term follow-up pelvic sonography given the subchorionic hemorrhage Dictated By: Martell Dobbins MD Signed By: <Electronically signed by Martell Dobbins MD in OV> 12/19/242028 [facility] Signed Patient: KRISTIN MICHEL. Record#: [id number] Birthdate: 1995 Age/Sex: 29 / F Location: [facility] Attending Dr: Ordering Physician: Aki Reynolds PA-C Date of Service: 12/19/24 Procedure(s): US gall bladder Accession Number(s): [id number] cc: Martell Dobbins MD; Aki Reynolds PA-C~ Examination: Abdomen sonogram, Limited Date and time of exam: December 19, 2024, 1940 hours INDICATIONS: Abdominal pain and fever epigastric pain today, early by history Technique: Real-time garza scale transabdominal sonographic images of the upper abdomen obtained. Findings: Normal gallbladder Normal common bile duct 0.3 cm Pancreatic head 3.6 cm Liver 15.9 cm fatty infiltration no focal liver lesions Normal hepatopetal portal venous flow Patent IVC IMPRESSION: Normal gallbladder Normal common bile duct Dictated By: Martell Dobbins MD Signed By: <Electronically signed by Martell Dobbins MD in OV> 12/19/242026 Medications / Prescriptions Medications or Prescriptions considered but not ordered:: none Medication administrations:: Medication Administration History Discontinued Medications Acetaminophen (Acetaminophen 500 Mg Tablet) 1,000 mg PO X1 ONE Stop: 12/19/24 18:44 Last Admin: 12/19/24 19:15 Dose: 1,000 mg Documented By: OA Ceftriaxone Sodium/Dextrose (Rocephin/D5w 1gm Iv Premix) 1 gm in 50 mls @ 100 mls/hr IV X1 ONE Stop: 12/19/24 19:13 Last Infusion: 12/19/24 21:19 Dose: Infused Documented By: Admin: 12/19/24 20:49 Dose: 100 mls/hr Documented By: FILI see above Consultations Consultation(s) initiated? (list below): No Diagnosis Differential diagnosis abdominal pain: other (See MDM) Most likely diagnosis given after review of the tests above:: see clinical impression below Admission Indicated Admission indicated?: not indicated Admission Request Was there a request for admission?: No Disposition Plan Disposition Plan: Discharge Discharge Attestation Discharge Attestation: The patient and all family members were given an opportunity to ask questions and understood the discharge instructions. Discharge instructions specifically effects, indications for sooner follow up or return to the emergency department, and the expected course of current diagnosis. Patient condition: Stable Discharge Plan Plan Patient Disposition: HOME (Self Care) Prescriptions/Referrals Prescriptions/Med Rec: No Action prenat.vits,aruna,[id number] Tablet 1 tab PO QDAY ibuprofen 600 mg tablet 600 mg PO QID MDD 4 30 Days Qty: 60 1RF docusate sodium [Colace] 100 mg capsule 100 mg PO BID MDD 2 30 Days Qty: 60 1RF albuterol sulfate 90 mcg/actuation HFA aerosol inhaler 1 inh inhalation QID Qty: 6.7 0RF Referrals: Darinel Chua MD [Primary Care Provider, Family Practice] - In 1 week Problem List Clinical Impression: , Abdominal pain, Fever Patient/Caregiver Discharge Instructions Additional Instructions: You may take Tylenol 650 mg every 6 hours as needed for pain and/or fever. Follow-up with your [employer] physician. Return to ER as needed or if condition worsens. Print Language: Tunisian Stand Alone Forms: [employer] Award Info., Patient Portal Info Letter
== END 2024-12-19 23:50 | disposition home or self-care (01) ==
PROVIDERS: Physician Assistant; Emergency Provider Emergency Medicine; PCP Family Medicine
DX: O20.8 Other hemorrhage in early pregnancy (principal); O24.111 Pre-existing type 2 diabetes mellitus, in pregnancy, first trimester; O26.891 Other specified pregnancy related conditions, first trimester; Z3A.01 Less than 8 weeks gestation of pregnancy
CPT/HCPCS: 36415; 76705; 76817; 80053; 80307; 81001; 83605; 83690; 84145; 84702; 85025; 87040; 87502; 87811; 96365; 99282; J0696; A9270

== ENCOUNTER 2025-01-07 15:35 | Emergency (ER) | payer MEDICAID, SELFPAY ==
[2025-01-07 15:36] VITALS: BMI 35.6
[2025-01-07 16:12] VITALS: BP 120/76; PULSE 101; RESP 18; TEMP 37.2; O2SAT 97
--- NOTE | 2025-01-07 16:32 | XR_ITS ---
Examination: Complete OB ultrasound, less than 14 weeks, transabdominal Date and time of exam: January 07, 2025, 1725 hours INDICATIONS: Onset vaginal bleeding today Technique: Obstetrical ultrasound images less than 14 weeks performed via transabdominal imaging Findings: Uterus 9.9 cm Intrauterine gestation 0.7 cm corresponds to 6 weeks 4 days gestational age No cardiac motion Right ovary 2.9 x 3.0 cm arterial flow 23 mm cyst Left ovary 2.3 x 2.2 cm arterial flow 16 mm follicular cyst IMPRESSION: Intrauterine gestation 6 weeks 4 days but no cardiac motion Recommend transvaginal pelvic sonography follow-up to exclude demise
--- NOTE | 2025-01-07 16:33 | PD.EDRME ---
Rapid Medical Screening Exam RME Arrival date/time: 01/07/25 15:35 This is a 4 para 3. Comes into the emergency room complaints of vaginal bleeding. Patient denies any other symptoms. Patient states last menstrual period was October 28. I have greeted and performed a focused initial assessment of this patient. Initial appropriate labs ordered at this time. A comprehensive ED assessment and evaluation of the patient and analysis of all test and completion of medical decision making process will be conducted by additional ED provider. Chief Complaint: Vaginal Bleeding Time Seen by Provider: 01/07/25 15:39 Vital signs: Vital Signs Temperature 98.9 F 01/07/25 16:12 Pulse Rate 101 H 01/07/25 16:12 Respiratory Rate 18 01/07/25 16:12 Blood Pressure 120/76 01/07/25 16:12 Pulse Oximetry (%) 97 01/07/25 16:12 Oxygen Delivery Method Room Air 01/07/25 16:12 Exam: Breathing even unlabored, alert and oriented Clinical Impression: Vaginal bleeding
[2025-01-07 17:33] LABS: Basophils # (Auto) 0.1 Thou/mm3 (0.0-0.2); Basophils % (Auto) 1 % (0-2.5); Eosinophils # (Auto) 0.9 Thou/mm3 (0.0-0.5); Eosinophils % (Auto) 7 % (0-10); Hematocrit 39.1 % (36.0-46.0); Hemoglobin 13.3 g/dL (12.0-16.0); Immature Granulocytes Auto 0.09 Thou/mm3 (0.00-0.00); Lymphocytes # (Auto) 4.1 Thou/mm3 (1.0-4.8); Lymphocytes % (Auto) 32 % (10-50); Mean Corpuscular HGB Conc 34.0 g/dl (31.0-37.0); Mean Corpuscular Hemoglobin 28.5 pg (25.0-35.0); Mean Corpuscular Volume 84 fL (80-100); Monocytes # (Auto) 0.7 Thou/mm3 (0.0-0.8); Monocytes % (Auto) 5 % (0-12); Neutrophils # (Auto) 6.9 Thou/mm3 (1.8-7.7); Neutrophils % (Auto) 54 % (37-80); Nucleated Red Blood Cell # 0.00 Thou/mm3 (0.00-0.00); Nucleated Red Blood Cell % 0 /100 WBC (0); Platelet Count 320 Thou/mm3 (140-440); RDW Standard Deviation 41.6 fL (36.4-46.3); Red Blood Count 4.67 Miln/mm3 (4.00-5.20); White Blood Count 12.7 Thou/mm3 (3.6-11.0)
[2025-01-07 18:19] LABS: Collection Type, Urine Voided
[2025-01-07 18:31] LABS: Alanine Aminotransferase 114 U/L (10-49); Albumin, Serum 4.8 gm/dL (3.5-5.0); Albumin/Globulin Ratio 1.8 (1.2-2.2); Alkaline Phosphatase 90 U/L (46-116); Anion Gap 11 (7-16); Aspartate Amino Transferase 104 U/L (0-34); BUN/Creatinine Ratio 15 Ratio (12-20); Beta HCG,Quantitative 6937 mIU/mL (<5.0); Bilirubin,Total 0.2 mg/dL (0.3-1.2); Blood Urea Nitrogen 9 mg/dL (9-23); Calcium 10.2 mg/dL (8.3-10.6); Calcium (Corrected) 10.2 mg/dL (8.5-10.1); Carbon Dioxide 23.6 mMol/L (20.0-31.0); Chloride 105 mMol/L (98-107); Creatinine (Component) 0.6 mg/dL (0.6-1.3); Estimated Creatinine Clearance 158.1 mL/min (>60); Globulin 2.7 gm/dL (2.3-3.5); Glucose 188 mg/dL (74-106); Osmolality,Calculated 283 (275-295); Potassium 3.8 mMol/L (3.4-5.1); Sodium 140 mMol/L (136-145); Total Protein 7.5 gm/dL (5.7-8.2); eGFR > 60 See Note
[2025-01-07 18:37] LABS: Amorphous Crystals,Urine Present (Absent); Bilirubin,Urine Negative (Negative); Blood,Urine 3+ (Negative); Culture Indicated,Urine Contaminated; Glucose, Urine Negative (Negative); Ketones,Urine Trace (Negative); Leukocyte Esterase,Urine Positive (Negative); Nitrite,Urine Negative (Negative); PH,Urine 6.0 (5.0-7.0); Protein,Urine 1+ (Neg - Trace); RBC,Urine 3374 /hpf (0-3); Specific Gravity,Urine 1.039 (1.001-1.035); Squamous Epithelial Cell,Urine 15 /hpf (0-5); Urobilinogen,Urine Negative mg/dL (0.0-1.0); WBC,Urine 103 /hpf (0-5)
[2025-01-07 18:38] LABS: Clarity,Urine Turbid (Clear/Hazy); Color,Urine Orange (Lt Yel-Yel)
--- NOTE | 2025-01-07 18:47 | EDNOTE_ITS ---
ED General RME/HPI General Chief complaint: Vaginal Bleeding Stated complaint: VAG BLEEDING/6WK PREGO Time Seen by Provider: 01/07/25 15:39 Arrival date/time: 01/07/25 15:35 CC: Vaginal bleeding HPI patient is a G5, P3 Ab1 at estimated 6 weeks with chief complaint of vaginal bleeding denies fever chills chest pain shortness of breath or difficulty breathing. RME / HPI RME / HPI narrative: 01/07/25 15:35 This is a 4 para 3. Comes into the emergency room complaints of vaginal bleeding. Patient denies any other symptoms. Patient states last menstrual period was October 28. I have greeted and performed a focused initial assessment of this patient. Initial appropriate labs ordered at this time. A comprehensive ED assessment and evaluation of the patient and analysis of all test and completion of medical decision making process will be conducted by additional ED provider. Exam: Breathing even unlabored, alert and oriented Impression: Vaginal bleeding Related Data Home Medications ?Medication ?Instructions ?Recorded ?Confirmed prenat.vits,aruna,[id number] 1 tab PO QDAY 08/24/20 08/24/20 Previous Rx's ?Medication ?Instructions ?Recorded docusate sodium 100 mg capsule 100 mg PO BID postpartu m 30 days 08/29/20 (Colace) #60 caps ibuprofen 600 mg tablet 600 mg PO QID fever or pain 30 08/29/20 days #60 tabs albuterol sulfate 90 mcg/actuation 1 inh inhalation QI D #6.7 grams 12/31/21 aerosol inhaler Allergies Allergy/AdvReac Type Severity Reaction Status Date / Time No Known Allergies Allergy Verified 01/07/25 15:38 Review of Systems Review of Systems Narrative Review of Systems: GEN: No fever, no chills, no weight loss EYES: No discharge, no visual changes, no pain HEENT: No ear pain, no congestion, no sore throat PULM: No shortness of breath, no cough, no congestion CV: No chest pain, no dyspnea on exertion, no palpitations GI: No nausea, no vomiting, no diarrhea, no pain, no constipation : No frequency, no urgency, no dysuria MUSC/SKEL: No joint pain, no back pain SKIN: No rash PSYCH: No hallucinations, no depression HEME/LYMPH: No easy bleeding or bruising tendencies NEURO: No weakness, no headache Past Medical History Past Medical History NEUROLOGIC: Negative Neurological Disorders or Seizures CARDIAC: Negative Cardiac Disorders or Congestive Heart Failure RESPIRATORY: Positive Asthma; Negative Chronic Obstructive Pulmonary Disease (COPD) GASTROINTESTINAL: Negative Gastrointestinal Disorders or Colorectal Cancer GENITOURINARY: Negative Genitourinary Disorders, Renal Disease or Prostate Cancer REPRODUCTIVE: Negative Breast Cancer, Endometriosis, Pelvic Inflammatory Disea se, Previous Pregnancies, Testicular Cancer or Uterine Prolapse MUSCULOSKELETAL: Negative Musculoskeletal Disorders, Bone Cancer or Carpal Tunnel Syndrome ENDOCRINE: Negative Endocrine Disorders, Diabetes Mellitus Type 1 or Diabetes Mellitus Type 2 HEMATOLOGIC: Negative Blood Disorders PSYCHO/SOCIAL: Negative Depression or Anxiety OTHER HISTORY: Positive Blood Transfusions (2012); Negative Autoimmune Disease, Blood Transfusion Reaction, Anesthesia Reactions, MRSA, VRSA, Vancomycin-Resistant Enterococci, Clostridium Difficile, Cancer, Breast Cancer, Cervical Cancer, Colorectal Cancer, Lung Cancer, Ovarian Cancer, Prostate Cancer or Testicular Cancer Family History FAMILY HISTORY: Negative Family Psychiatric Problems, Family Respiratory Disorders, Family Cardiac Disorders, Family Gastrointestinal Problems, Family Cancer, Family Surgery or Family Anesthesia Reaction Surgical History SURGICAL: Positive Oral Surgery; Negative Abdominal Surgery, Nephrectomy, Transurethral Resection, Joint Replacement, Amputation, Open Reduction Internal Fixation, Arthroscopy, Neurologic Surgery or Brain Shunt Social History SMOKING STATUS: Never smoker ED Exam Narrative Physical exam: [General: Obese not in any acute distress Head normocephalic HEENT: Within acceptable limits Neck is supple nontender Chest equal chest rise nontender to palpation Respiratory: Clear to auscultation no wheezes crackles or rubs CV: Rate rhythm is regular no murmurs rubs or clicks Abdomen is distended secondary to body habitus soft nontender no masses positive bowel sounds all 4 quadrants Back: No CVA tenderness no spinous process tenderness from cervical spine thoracic and lumbar spine Skin: Intact no petechiae rash induration ulceration or crepitus Extremities: Moving all extremity against resistance cap refill less than 2 seconds neurosensory intact Neuro: Awake alert oriented x3 Glascow coma 15 no focal deficits] Course Quality Measures none Orders Category Date Time Status US OB <= 14 weeks fetus Stat Exams 01/07/25 16:32 Completed ABO/RH Type - Stat Lab 01/07/25 17:04 Completed Beta HCG,Quantitative Stat Lab 01/07/25 17:04 Completed CBC Stat Lab 01/07/25 17:04 Completed Comprehensive Metabolic Panel Stat Lab 01/07/25 17:04 Completed Urinalysis, C/S if Indicated Stat Lab 01/07/25 17:59 Completed Vital Signs Vital signs: Vital Signs Temperature 98.9 F 01/07/25 16:12 Pulse Rate 101 H 01/07/25 16:12 Respiratory Rate 18 01/07/25 16:12 Blood Pressure 120/76 01/07/25 16:12 Pulse Oximetry (%) 97 01/07/25 16:12 Oxygen Delivery Method Room Air 01/07/25 16:12 Discharge Plan Plan Patient Disposition: HOME (Self Care) Patient condition on transfer: Stable Prescriptions/Referrals Prescriptions/Med Rec: No Action prenat.vits,aruna,[id number] Tablet 1 tab PO QDAY ibuprofen 600 mg tablet 600 mg PO QID MDD 4 30 Days Qty: 60 1RF docusate sodium [Colace] 100 mg capsule 100 mg PO BID MDD 2 30 Days Qty: 60 1RF albuterol sulfate 90 mcg/actuation HFA aerosol inhaler 1 inh inhalation QID Qty: 6.7 0RF Referrals: Darinel Chua MD [Primary Care Provider, Family Practice] - In 1 week Problem List Clinical Impression: , threatened Patient/Caregiver Discharge Instructions Other Activity Instructions:: Quantitative hCG at 6937 return in 1 week for repeat ultrasound and quantitative hCG to double check your potential miscarriage. Tylenol for pain. Education Materials: ED Possible Miscarriage ... Print Language: Greenlandic Stand Alone Forms: [employer] Award Info., Work/School Release, Patient Portal Info Letter PA/[employer] Supervising Physician PA/[employer] Supervising Physician: Reddy Lindsey ENP [facility] Clinical Information Provided by: patient Medical Records reviewed [facility] Meds/Rx considered, not ordered None Labs/Rad/Tests considered, not ordered None Chronic Illness/Social Conditions Explain: Obesity EKG EKG not done Labs Labs: interpreted by sc Lab(s) Interpretation(s): CBC shows a mild leukocytosis of 12.7 no anemia thrombocytopenia CMP shows no significant electrolyte imbalances other than a glucose of 188. Mild transaminitis with AST of 104 ALT of 114 T. bili of 0.2. Urine is turbid 3+ blood RBCs of 3300 WBCs 103 squamous epithelial 15 this is a bloody contaminated specimen ABO positive Quantitative hCG at 6937.
== END 2025-01-07 18:59 | disposition home or self-care (01) ==
PROVIDERS: Nurse Practitioner Family; Emergency Provider Emergency Medicine; PCP Family Medicine
DX: O03.9 Complete or unspecified spontaneous abortion without complication (principal); E66.9 Obesity, unspecified; Z96.60 Presence of unspecified orthopedic joint implant
CPT/HCPCS: 36415; 76801; 80053; 81001; 84702; 85025; 86900; 86901; 99283

== ENCOUNTER 2025-01-08 23:17 | Emergency (ER) | payer MEDICAID, SELFPAY ==
[2025-01-08 23:19] VITALS: BMI 35.4
[2025-01-08 23:30] VITALS: BP 121/75; PULSE 110; RESP 19; TEMP 37.6; O2SAT 97
--- NOTE | 2025-01-09 03:19 | PC.NURSE ---
NO ANSWER@[phone], [phone]. pt eloped the ER.
== END 2025-01-09 03:20 | disposition left against medical advice (07) ==
PROVIDERS: Emergency Provider Emergency Medicine
DX: Z53.21 Procedure and treatment not carried out due to patient leaving prior to being seen by health care provider (principal)
CPT/HCPCS: 87502; 99281

== ENCOUNTER 2025-01-10 13:12 | Emergency (ER) | payer MEDICAID, SELFPAY ==
[2025-01-10 13:59] VITALS: BP 134/88; PULSE 107; RESP 20; TEMP 36.9; O2SAT 98
--- NOTE | 2025-01-10 14:06 | XR_ITS ---
Examination: OB Transvaginal ultrasound of the pelvis, complete Technique: Transvaginal sonographic images pelvis performed using garza scale imaging Exam date and time: January 10, 2025, 1513 hours INDICATIONS: Vaginal bleeding beginning 3 days ago FINDINGS: Uterus 9.9 cm pole 1.2 cm corresponds to 7-week 3 days gestational age No cardiac motion Right ovary 3.0 cm arterial flow 21 x 16 mm cyst Left ovary obscured by bowel gas IMPRESSION: Intrauterine gestation with pole corresponding to 7 weeks 3 days gestational age However, no cardiac motion consistent with demise Recommend short-term follow-up pelvic sonography.
[2025-01-10 14:29] LABS: Basophils # (Auto) 0.1 Thou/mm3 (0.0-0.2); Basophils % (Auto) 1 % (0-2.5); Eosinophils # (Auto) 0.6 Thou/mm3 (0.0-0.5); Eosinophils % (Auto) 4 % (0-10); Hematocrit 37.5 % (36.0-46.0); Hemoglobin 12.6 g/dL (12.0-16.0); Immature Granulocytes Auto 0.08 Thou/mm3 (0.00-0.00); Lymphocytes # (Auto) 4.0 Thou/mm3 (1.0-4.8); Lymphocytes % (Auto) 27 % (10-50); Mean Corpuscular HGB Conc 33.6 g/dl (31.0-37.0); Mean Corpuscular Hemoglobin 28.3 pg (25.0-35.0); Mean Corpuscular Volume 84 fL (80-100); Monocytes # (Auto) 1.2 Thou/mm3 (0.0-0.8); Monocytes % (Auto) 8 % (0-12); Neutrophils # (Auto) 8.9 Thou/mm3 (1.8-7.7); Neutrophils % (Auto) 60 % (37-80); Nucleated Red Blood Cell # 0.00 Thou/mm3 (0.00-0.00); Nucleated Red Blood Cell % 0 /100 WBC (0); Platelet Count 304 Thou/mm3 (140-440); RDW Standard Deviation 42.5 fL (36.4-46.3); Red Blood Count 4.45 Miln/mm3 (4.00-5.20); White Blood Count 14.9 Thou/mm3 (3.6-11.0)
[2025-01-10 14:57] LABS: Alanine Aminotransferase 89 U/L (10-49); Albumin, Serum 4.8 gm/dL (3.5-5.0); Albumin/Globulin Ratio 1.7 (1.2-2.2); Alkaline Phosphatase 81 U/L (46-116); Anion Gap 10 (7-16); Aspartate Amino Transferase 76 U/L (0-34); BUN/Creatinine Ratio 9 Ratio (12-20); Bilirubin,Total 0.3 mg/dL (0.3-1.2); Blood Urea Nitrogen 6 mg/dL (9-23); Calcium 9.8 mg/dL (8.3-10.6); Calcium (Corrected) 9.8 mg/dL (8.5-10.1); Carbon Dioxide 24.4 mMol/L (20.0-31.0); Chloride 105 mMol/L (98-107); Creatinine (Component) 0.7 mg/dL (0.6-1.3); Globulin 2.8 gm/dL (2.3-3.5); Glucose 128 mg/dL (74-106); Osmolality,Calculated 277 (275-295); Potassium 3.9 mMol/L (3.4-5.1); Sodium 139 mMol/L (136-145); Total Protein 7.6 gm/dL (5.7-8.2); eGFR > 60 See Note
[2025-01-10 15:17] LABS: Beta HCG,Quantitative 5226 mIU/mL (<5.0)
--- NOTE | 2025-01-10 15:49 | PD.EDVAGBL ---
ED OB Contraction Preg RMI/HPI General Chief complaint: Vaginal Bleeding Stated complaint: VAGINAL BLEEDING APPROX 6WKS GESTATION Time Seen by Provider: 01/10/25 14:02 Arrival date/time: 01/10/25 13:12 29-year-old female G5, with history of diabetes presents to the emergency room today stating that she is having vaginal bleeding patient reports vaginal bleeding ongoing since Wednesday approximately 3-4 pads a day Limitations: no limitations Related Data Home Medications ?Medication ?Instructions ?Recorded ?Confirmed prenat.vits,aruna,[id number] 1 tab PO QDAY 08/24/20 08/24/20 Previous Rx's ?Medication ?Instructions ?Recorded docusate sodium 100 mg capsule 100 mg PO BID 30 days 08/29/20 (Colace) #60 caps ibuprofen 600 mg tablet 600 mg PO QID fever or pain 30 08/29/20 days #60 tabs albuterol sulfate 90 mcg/actuation 1 inh inhalation QID #6.7 grams 12/31/21 aerosol inhaler hydrocodone 5 mg-acetaminophen 325 1 tab PO Q4H PRN pain #2 tabs 01/10/25 mg tablet ibuprofen 800 mg tablet 800 mg PO Q8H PRN pain #30 tabs 01/10/25 ondansetron HCl 4 mg tablet 4 mg PO Q6H PRN nausea #10 tabs 01/10/25 Allergies Allergy/AdvReac Type Severity Reaction Status Date / Time No Known Allergies Allergy Verified 01/08/25 23:23 Review of Systems Review of Systems Systems Reviewed: All systems reviewed, normal except as documented Constitutional Constitutional: Reports system reviewed and no additional complaints, except as documented, Denies fever(s) and Denies headache(s) Eyes Eyes: Reports system reviewed and no additional complaints, except as documented and Denies blurry vision ENT Ears, Nose, Mouth, and Throat: Reports system reviewed and no additional complaints, except as documented, Denies headache(s), Denies nasal congestion and Denies nasal discharge Cardiovascular Cardiovascular: Reports system reviewed and no additional complaints, except as documented, Denies chest pain and Denies dyspnea Respiratory Respiratory: Reports system reviewed and no additional complaints, except as documented, Denies chest congestion, Denies cough and Denies dyspnea Gastrointestinal Gastrointestinal: Reports system reviewed and no additional complaints, except as documented and Denies abdominal pain Genitourinary Genitourinary: Reports system reviewed and no additional complaints, except as documented and Reports abnormal vaginal bleeding Integumentary/Breasts Skin/Breast: Reports system reviewed and no additional complaints, except as documented and Denies rash Neurologic Neurologic: Reports system reviewed and no additional complaints, except as documented, Reports as per HPI and Denies headache(s) Past Medical History Past Medical History NEUROLOGIC: Negative Neurological Disorders or Seizures CARDIAC: Negative Cardiac Disorders or Congestive Heart Failure RESPIRATORY: Positive Asthma; Negative Chronic Obstructive Pulmonary Disease (COPD) GASTROINTESTINAL: Negative Gastrointestinal Disorders or Colorectal Cancer GENITOURINARY: Negative Genitourinary Disorders, Renal Disease or Prostate Cancer REPRODUCTIVE: Negative Breast Cancer, Endometriosis, Pelvic Inflammatory Disease, Previous Pregnancies, Testicular Cancer or Uterine Prolapse MUSCULOSKELETAL: Negative Musculoskeletal Disorders, Bone Cancer or Carpal Tunnel Syndrome ENDOCRINE: Negative Endocrine Disorders, Diabetes Mellitus Type 1 or Diabetes Mellitus Type 2 HEMATOLOGIC: Negative Blood Disorders PSYCHO/SOCIAL: Negative Depression or Anxiety OTHER HISTORY: Positive Blood Transfusions (2012); Negative Autoimmune Disease, Blood Transfusion Reaction, Anesthesia Reactions, MRSA, VRSA, Vancomycin-Resistant Enterococci, Clostridium Difficile, Cancer, Breast Cancer, Cervical Cancer, Colorectal Cancer, Lung Cancer, Ovarian Cancer, Prostate Cancer or Testicular Cancer Family History FAMILY HISTORY: Negative Family Psychiatric Problems, Family Respiratory Disorders, Family Cardiac Disorders, Family Gastrointestinal Problems, Family Cancer, Family Surgery or Family Anesthesia Reaction Surgical History SURGICAL: Positive Oral Surgery; Negative Abdominal Surgery, Nephrectomy, Transurethral Resection, Joint Replacement, Amputation, Open Reduction Internal Fixation, Arthroscopy, Neurologic Surgery or Brain Shunt Social History SMOKING STATUS: Never smoker ED Exam General Limitations: Present no limitations General appearance: Present alert and in no apparent distress Head Head exam: Present atraumatic Eye Eye exam: Present normal appearance, PERRL and EOMI ENT ENT exam: Present normal exam, normal oropharynx and mucous membranes moist Neck Neck exam: Present normal inspection, full ROM and trachea midline Chest Chest inspection: Present normal inspection and symmetric chest wall rise Respiratory Respiratory exam: Present normal lung sounds bilaterally Cardiovascular Cardiovascular exam: Present regular rate, normal rhythm and normal heart sounds Abdominal Exam Abdominal exam: Present soft and normal bowel sounds; Absent distention, tenderness, guarding, rebound or rigidity Extremities Exam Extremities exam: Present normal inspection and full ROM Back Exam Back exam: Present normal inspection and full ROM Neurological Exam Neurological exam: Present alert, oriented X3, CN II-XII intact, normal gait and reflexes normal; Absent motor sensory deficit Psychiatric Psychiatric exam: Present normal affect and normal mood Skin Skin exam: Present warm, dry, intact and normal color Course Quality Measures none Orders Category Date Time Status Consult to Gynecology Stat Cons 01/10/25 16:01 Ordered US OB transvaginal Stat Exams 01/10/25 14:06 Completed Beta HCG,Quantitative Stat Lab 01/10/25 14:22 Completed CBC Stat Lab 01/10/25 14:22 Completed CMP [Comprehensive Metabolic Panel] Stat Lab 01/10/25 14:22 Completed Type and Screen Stat Lab 01/10/25 14:22 Completed Vital Signs Vital signs: Vital Signs Temperature 98.4 F 01/10/25 13:59 Pulse Rate 107 H 01/10/25 13:59 Respiratory Rate 20 01/10/25 13:59 Blood Pressure 134/88 H 01/10/25 13:59 Pulse Oximetry (%) 98 01/10/25 13:59 Oxygen Delivery Method Room Air 01/10/25 13:59 O2 saturation 98% room air within normal limits Vaginal Bleeding MDM Narrative MDM Narrative: 29-year-old female G5, with history of diabetes presents to the emergency room today stating that she is having vaginal bleeding patient reports vaginal bleeding ongoing since Wednesday approximately 3-4 pads a day On exam patient well-appearing does not appear ill or toxic no acute distress Lab work and imaging obtained I reviewed patient's previous records patient's been here twice before for this patient is concerned that she is having an Both lab work and imaging reviewed consistent with incomplete at this time Consultation: Spoke with Dr. Herr who came to evaluate the patient in person discussed findings with the patient and states she will send medication to the pharmacy herself At time of discharge patient has no active bleeding reports no chest pain shortness of breath or abdominal pain patient hemodynamically stable and well-appearing For emergent concerns patient is instructed return for reevaluation Patient data External records reviewed:: [facility] previous records Clinical information provided by:: patient Social determinants that could affect healthcare access:: none Patient has the following chronic illnesses:: None How is presenting disease/condition affected by chronic disease/condition?: no chronic disease Evaluation data The following diagnostics were reviewed and interpreted by me:: lab results and radiology exam(s) Lab and/or radiology exams considered but not ordered:: Labs radiology obtained Interpretation Summary: Reviewed by me Medications / Prescriptions Medications or Prescriptions considered but not ordered:: No med Medication administrations:: No meds here Consultations Consultation(s) initiated? (list below): Yes Consultation #1 (Physician, Specialty, Details): Dr. eHrr Diagnosis Vaginal Bleeding Differential Diagnosis: missed and threatened Most likely diagnosis given after review of the tests above:: Threatened Admission Indicated Admission indicated?: not indicated Admission Request Was there a request for admission?: No Disposition Plan Disposition Plan: Discharge Discharge Attestation Discharge Attestation: The patient and all family members were given an opportunity to ask questions and understood the discharge instructions. Discharge instructions specifically effects, indications for sooner follow up or return to the emergency department, and the expected course of current diagnosis. Patient condition: Stable Discharge Plan Plan Patient Disposition: HOME (Self Care) Discharge Disposition comment: Stable Prescriptions/Referrals Prescriptions/Med Rec: New ibuprofen 800 mg tablet 800 mg PO Q8H PRN (Reason: pain) Qty: 30 0RF ondansetron HCl 4 mg tablet 4 mg PO Q6H PRN (Reason: nausea) Qty: 10 0RF hydrocodone-acetaminophen 5-325 mg tablet 1 tab PO Q4H MDD 2 tablets PRN (Reason: pain) Qty: 2 0RF No Action prenat.vits,aruna,[id number] Tablet 1 tab PO QDAY ibuprofen 600 mg tablet 600 mg PO QID MDD 4 30 Days Qty: 60 1RF docusate sodium [Colace] 100 mg capsule 100 mg PO BID MDD 2 30 Days Qty: 60 1RF albuterol sulfate 90 mcg/actuation HFA aerosol inhaler 1 inh inhalation QID Qty: 6.7 0RF Referrals: Darinel Chua MD [Primary Care Provider, Family Practice] - In 1 week Problem List Clinical Impression: Incomplete Patient/Caregiver Discharge Instructions Education Materials: Understanding Miscarriage ... Additional Instructions: Please follow-up with PROJECT PORTFOLIO ANALYST as discussed for worsening symptoms return immediately Print Language: Moroccan Stand Alone Forms: Phuong Award Info., Patient Portal Info Letter PA/NET PROGRAMMER ANALYST Supervising Physician PA/NET PROGRAMMER ANALYST Supervising Physician: Dr. lanier
--- NOTE | 2025-01-10 17:37 | ESCONSULT_ITS ---
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 No dizziness or syncope. On 12/19 she presented to ER for bleeding and ultrasound showed SIUP 6w3d with positive cardiac activity, but subchorionic hemorrhage was present. Hcg 7559. She re-presented to ER for bleeding on 01/07 and was shown to have SIUP with absent cardiac activity. Hcg 6937. History is notable for 2 term vaginal deliveries followed by a 36wk PLTCS in 2020 for placenta previa. Since then she has had 1 therapeutic with medication- no complications. 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, no tobacco/ETOH/illicit drug use Medications: PNV Allergies: NKDA cc:: cc: Review of Systems Review of Systems Narrative Review of Systems: Review of Systems Systems Reviewed: All systems reviewed, normal except as documented Constitutional Constitutional: Denies body ache(s), Denies chills, Denies fever(s) and Denies headache(s) ENT Ears, Nose, Mouth, and Throat: Denies headache(s) and Denies vertigo Cardiovascular Cardiovascular: Denies chest pain, Denies palpitations, Denies dyspnea and Denies syncope Respiratory Respiratory: Denies cough, Denies dyspnea Gastrointestinal Gastrointestinal: Denies nausea and Denies vomiting Neurologic Neurologic: Denies convulsions, Denies headache(s), Denies other visual disturbances, Denies syncope and Denies vertigo Meds Home Medications and Allergies Home Medications ?Medication ?Instructions ?Recorded ?Confirmed ?Type prenat.vits,aruna,[id number] 1 tab PO QDAY 08/24/20 08/24/20 History Allergies Allergy/AdvReac Type Severity Reaction Status Date / Time No Known Allergies Allergy Verified 01/08/25 23:23 Exam - FORMING MACHINE ADJUSTER Vital Signs Temp Pulse Resp BP Pulse Ox O2 Del Method 98.4 F 107 H 20 134/88 H 98 Room Air 01/10/25 13:59 01/10/25 13:59 01/10/25 13:59 01/10/25 13:59 01/10/25 13:59 01/10/25 13:59 Narrative Exam General: well developed, well nourished, no acute distress, conversant Cardiac: normal heart rate Lungs: breathing without distress Abdomen: soft, obese, non-tender, no rebound or guarding Extremities: no edema BLE FORMING MACHINE ADJUSTER - Results Labs 01/10/25 14:22 01/10/25 14:22 Labs: Short CBC 01/10/25 Range/Units 14:22 WBC 14.9 H (3.6-11.0) Thou/mm3 Hgb 12.6 (12.0-16.0) g/dL Hct 37.5 (36.0-46.0) % Plt Count 304 (140-440) Thou/mm3 BMP 01/10/25 14:22 Sodium 139 Potassium 3.9 Chloride 105 Carbon Dioxide 24.4 BUN 6 L Creatinine 0.7 Glucose 128 H D Calcium 9.8 Liver Function 01/10/25 Range/Units 14:22 Total Bilirubin 0.3 (0.3-1.2) mg/dL AST 76 H (0-34) U/L ALT 89 H (10-49) U/L Alkaline Phosphatase 81 (46-116) U/L Albumin 4.8 (3.5-5.0) gm/dL Impressions Impression: Examination: OB Transvaginal ultrasound of the pelvis, complete Technique: Transvaginal sonographic images pelvis performed using garza scale imaging Exam date and time: January 10, 2025, 1513 hours INDICATIONS: Vaginal bleeding beginning 3 days ago FINDINGS: Uterus 9.9 cm pole 1.2 cm corresponds to 7-week 3 days gestational age No cardiac motion Right ovary 3.0 cm arterial flow 21 x 16 mm cyst Left ovary obscured by bowel gas IMPRESSION: Intrauterine gestation with pole corresponding to 7 weeks 3 days gestational age However, no cardiac motion consistent with demise Recommend short-term follow-up pelvic sonography. Assessment and Plan Assessment and plan (1) Incomplete : Status: Acute Assessment and plan: Unique is a 29yo with missed dx 01/07 presenting for cramping with vaginal bleeding, TVUS shows continued presence of SIUP with FP measuring 1.2cm having absent cardiac activity. Hcg has downtrended from 7559 to 6937 to 5226. Hgb 12.6 Blood type O positive Vitals wnl (mild tachycardia present at all recent visits), afebrile She is hemodynamically stable with no evidence of infection. Plan: -I discussed with patient the diagnosis of miscarriage and explained all of the clinical findings -I discussed options for treatment of miscarriage to include: expectant management vs medical management vs surgical management. We discussed all the r/b/a to each of the 3 options fully, and after our discussion she has opted for: medical management -I discussed expectations for cramping/bleeding and return precautions for severe bleeding, dizziness/lightheadedness, syncope, fevers/chills. -Rx cytotec 800mcg PV x1 (with repeat doses each 24hr x 3 total doses if tissue passage does not occur after prior dose). This was called into the pharmacy since [facility] does not given an option for PV dosing. -Also Rx motrin 800mg PO Q8hr prn pain and 2 tabs of norco 5/325mg PO Q4hr prn pain and zofran 4mg PO Q6hr prn nausea -I discussed with patient that miscarriages are common and she did nothing to cause it -We discussed if subsequent is desired, to wait for 1 normal menstrual cycle prior to trying to conceive. Continue PNV. -If is not desired, she should follow up with [facility] for contraception options. Discussed possibility of BTL if she is 100% sure she is done with childbearing. -Regardless, she should follow up with [facility] within 1 week for miscarriage follow up and to establish care.
== END 2025-01-10 18:11 | disposition home or self-care (01) ==
PROVIDERS: Nurse Practitioner Primary Care; Emergency Provider Family Medicine; PCP Family Medicine
DX: O03.4 Incomplete spontaneous abortion without complication (principal)
CPT/HCPCS: 36415; 76817; 80053; 84702; 85025; 86850; 86900; 86901; 99283